=== PATIENT | male | born 1990 | race Hispanic/Latino ===

== ENCOUNTER 2022-05-27 17:35 | Emergency (ER) | payer BC ==
[~2022-05-27 17:35] MED LIST: Iopamidol-370 76% 500 ML 1 ML ONE
[2022-05-27] MEDS ORDERED: Mag-Al 1200 mg/1200 mg/30 ML UDCUP ONE (19:59)
[2022-05-27] MEDS ORDERED: Lidocaine Viscous Sol 2% 15 ml UD Cup ONE (20:00)
== END 2022-05-27 21:24 | disposition home or self-care (01) ==
LOC: ERS 17:35
DX: K11.8 Other diseases of salivary glands (principal)
CPT/HCPCS: 70491; Q9967